=== PATIENT | male | born 1985 | race Caucasian/White ===

== ENCOUNTER 2023-01-21 18:05 | Emergency (ER) | payer OTHER, SELFPAY ==
--- NOTE | ~2023-01-21 | XR_ITS ---
EXAMINATION: XR CHEST CLINICAL INFORMATION: Shortness of breath. COMPARISON: None available. TECHNIQUE: Frontal view of the chest was obtained. FINDINGS: Normal appearance of the cardiomediastinal silhouette. Chronic appearing deformities of multiple right-sided ribs with associated subpleural thickening. No pleural effusion or pneumothorax. Mild diffuse interstitial thickening. Visualized upper abdomen is within normal limits. XR/XR chest 1V IMPRESSION: 1. Mild diffuse interstitial thickening which is nonspecific and could be associated with asthma, bronchitis, reactive airways disease or atypical infections. 2. Chronic appearing deformities of multiple right-sided ribs with associated subpleural thickening. Correlate with physical examination.
[2023-01-21 18:16] VITALS: BP 143/93; BP 182/78; PULSE 120; PULSE 95; RESP 16; TEMP 36.8; O2SAT 93; O2SAT 94; BMI 34.4
--- NOTE | 2023-01-21 19:17 | ED.OVERDOSE ---
HPI - Overdose General Chief Complaint: Overdose Stated Complaint: overdose narcan given Time Seen by Provider: 01/21/23 19:14 Source: patient Mode of arrival: EMS Limitations: no limitations History of Present Illness HPI Narrative: Patient history of cocaine abuse came from work and snorted 1 bag of cocaine but had fentanyl in that found unresponsive a bystander HPD give him 8 mg intranasal Narcan and BVM now it oriented x3 desaturating to 84% at room air feels lung tight patient did smoked a lot prior to using cocaine. Patient denies any history of lung issues in the past no sleep apnea Related Data Previous Rx's Medication Instructions Recorded albuterol sulfate 90 mcg/actuation 2 puff inhalation Q4-6H PRN 01/21/23 aerosol inhaler (ProAir HFA) shortness of breath or wheezing #8.5 grams prednisone 20 mg tablet 40 mg PO DAILY #10 tabs 01/21/23 Allergies Allergy/AdvReac Type Severity Reaction Status Date / Time No Known Allergies Allergy Verified 01/21/23 19:26 Review of Systems Review of Systems: Yes all other systems are reviewed and are negative [facility] Social History Social History Advance Directives: No Advance Directives Information Provided: No Physical Exam Vital Signs: Vital Signs: Last Vital Signs Temp 98.3 F 01/21/23 18:16 Pulse 106 H 01/21/23 22:30 Resp 22 H 01/21/23 22:30 BP 143/93 H 01/21/23 18:16 Pulse Ox 94 01/21/23 20:05 O2 Del Method Nasal Cannula 01/21/23 20:05 O2 Flow Rate 2 01/21/23 20:05 Oxygen Flow Rate 4 01/21/23 18:16 BMI result Body Mass Index 34.4 Appearance: Alert. Oriented X3. No acute distress. Eyes: PERRLA, ENT: Pharynx normal. Oral Mucosa moist Neck: Normal inspection. Neck supple. CVS: Normal heart rate and rhythm. Pulses normal. Respiratory: By respiratory distress. Equal air entry bilateral, decreased air entry bilateral with frequent cough Abdomen: Soft and nontender. Bowel sounds are present, no mass palpable, no CVA tenderness Skin: Skin warm and dry. Normal skin color. Normal skin turgor. Extremities: No lower extremity edema. No calf tenderness Neuro: Oriented X 3. No motor deficit. Medications Administered Discontinued Medications Generic Name Dose Route Start Last Admin Trade Name Ricarda PRN Reason Stop Dose Admin Albuterol Sulfate 5 mg 01/21/23 19:26 01/21/23 19:39 Albuterol Sulfate (0.083%) 2.5 Mg/3 Ml Vial.Neb INHALE 01/21/23 19:27 5 mg ONCE ONE Administration Albuterol Sulfate 4 puff 01/21/23 21:27 01/21/23 21:34 Albuterol Sulfate 90 Mcg 8 Gm Inhaler INHALE 01/21/23 21:28 4 puff ONCE ONE Administration Albuterol Sulfate 10 mg 01/21/23 22:19 01/21/23 22:29 Albuterol Sulfate (0.083%) 2.5 Mg/3 Ml Vial.Neb INHALE 01/21/23 22:20 10 mg ONCE ONE Administration Albuterol/Ipratropium 3 ml 01/21/23 19:26 01/21/23 19:39 Albuterol/Iprat 2.5/0.5mg 3 Ml Ampul.Neb INHALE 01/21/23 19:27 3 ml ONCE ONE Administration Magnesium Sulfate 2 gm in 50 mls @ 150 mls/hr 01/21/23 22:19 01/21/23 23:00 Magnesium Sulfate/H2o IV 01/21/23 22:38 Infused ONCE ONE Infusion Methylprednisolone Sodium Succinate 125 mg 01/21/23 19:27 01/21/23 21:03 Methylprednisolone Sod Succ 125 Mg/2 Ml Vial IVPUSH 01/21/23 19:28 125 mg ONCE ONE Administration Medical Decision Making Medical Decision Making [facility] Narrative: Patient with substance abuse with bronchitis improved after nebulizing treatment no chest pain likely from a hypoxic injury. Will repeat troponin Differential Diagnosis Differential Diagnoses: The differential diagnosis associated with the presentation includes Allergic bronchitis/pneumothorax/pneumonia/CHF Lab Data [facility] Lab Attestation statement: I reviewed the patient's lab results. 01/21/23 20:18 01/21/23 20:18 Labs: Lab Results 01/21/23 01/21/23 01/21/23 Range/Units 20:18 20:18 20:18 WBC 9.7 (4.8-10.8) X10*3/uL RBC 4.68 (4.60-5.80) X10*6/uL Hgb 14.8 (14.0-18.0) g/dl Hct 41.5 L (42.0-52.0) % MCV 88.7 (80.0-98.0) fL MCH 31.6 (27.0-33.0) pg MCHC 35.7 (31.0-36.0) g/dl RDW 11.8 (11.0-16.0) % Plt Count 255 (160-400) X10*3/uL MPV 9.6 (9.4-12.4) fL Immature Gran % (Auto) 0.3 (0.0-0.4) % Neut % (Auto) 84.4 H (45-73) % Lymph % (Auto) 9.2 L (20-40) % Doddridge % (Auto) 5.0 (2-11) % Eos % (Auto) 0.8 (0-4) % Baso % (Auto) 0.3 (0-2) % Lymph # (Auto) 0.9 L (1.2-4.9) X10*3/uL Dod[place]idge # (Auto) 0.5 (0.1-1.2) X10*3/uL Eos # (Auto) 0.1 (0.0-0.4) X10*3/uL Baso # (Auto) 0.0 (0.0-0.2) X10*3/uL Abs Immat Gran (auto) 0.03 (0.00-0.03) X10*3/uL Absolute Neuts (auto) 8.2 (2.0-8.3) x10*3/uL Absolute Nucleated RBC 0.000 (0.0-0.012) X10*3/uL Nucleated RBC % (auto) 0.0 (0.0-0.2) /100WBC PT (11.1-13.3) SEC INR (0.9-1.1) Sodium 141 (135-145) mmol/L Potassium 3.4 (3.3-5.1) mmol/L Chloride 102 (96-108) mmol/L Carbon Dioxide 27 (22-29) mmol/L Anion Gap 15 (12-20) BUN 15 (9-16) mg/dL Creatinine 1.17 (0.5-1.4) mg/dL Estim Creat Clear Calc 114.2 Estimated GFR > 60 Random Glucose 133 H (60-115) mg/dL Calcium 9.5 (8.4-10.2) mg/dL Total Bilirubin 0.6 (0.0-1.0) mg/dL AST 20 (5-37) U/L ALT 32 (0-40) U/L Alkaline Phosphatase 51 (39-117) U/L Troponin I High Sens 41.0 H (<3.5-35.0) ng/L B-Natriuretic Peptide (<100) pg/mL Total Protein 7.4 (6.5-8.0) g/dL Albumin 4.5 (3.5-5.0) g/dL 01/21/23 01/21/23 01/21/23 Range/Units 20:18 20:18 22:24 WBC (4.8-10.8) X10*3/uL RBC (4.60-5.80) X10*6/uL Hgb (14.0-18.0) g/dl Hct (42.0-52.0) % MCV (80.0-98.0) fL MCH (27.0-33.0) pg MCHC (31.0-36.0) g/dl RDW (11.0-16.0) % Plt Count (160-400) X10*3/uL MPV (9.4-12.4) fL Immature Gran % (Auto) (0.0-0.4) % Neut % (Auto) (45-73) % Lymph % (Auto) (20-40) % Doddridge % (Auto) (2-11) % Eos % (Auto) (0-4) % Baso % (Auto) (0-2) % Lymph # (Auto) (1.2-4.9) X10*3/uL [place]idge # (Auto) (0.1-1.2) X10*3/uL Eos # (Auto) (0.0-0.4) X10*3/uL Baso # (Auto) (0.0-0.2) X10*3/uL Abs Immat Gran (auto) (0.00-0.03) X10*3/uL Absolute Neuts (auto) (2.0-8.3) x10*3/uL Absolute Nucleated RBC (0.0-0.012) X10*3/uL Nucleated RBC % (auto) (0.0-0.2) /100WBC PT 11.1 (11.1-13.3) SEC INR 0.9 (0.9-1.1) Sodium (135-145) mmol/L Potassium (3.3-5.1) mmol/L Chloride (96-108) mmol/L Carbon Dioxide (22-29) mmol/L Anion Gap (12-20) BUN (9-16) mg/dL Creatinine (0.5-1.4) mg/dL Estim Creat Clear Calc Estimated GFR Random Glucose (60-115) mg/dL Calcium (8.4-10.2) mg/dL Total Bilirubin (0.0-1.0) mg/dL AST (5-37) U/L ALT (0-40) U/L Alkaline Phosphatase (39-117) U/L Troponin I High Sens 62.3 H D (<3.5-35.0) ng/L B-Natriuretic Peptide < 10 (<100) pg/mL Total Protein (6.5-8.0) g/dL Albumin (3.5-5.0) g/dL Discharge Plan Discharge Clinical Impression: Poisoning by opiate or related narcotic, Acute bronchitis Patient Disposition: Home, Self-Care Instructions: Acute Bronchitis (ED), Opioid Use Disorder (ED) Additional Instructions: Stop using cocaine/opiates Inhaler as advised and prednisone for bronchitis Follow with PCP You have elevated troponin likely from damage to heart Need to follow-up with chicken picker/PCP stop using cocaine Prescriptions: New albuterol sulfate [ProAir HFA] 90 mcg/actuation HFA aerosol inhaler 2 puff inhalation Q4-6H PRN (Reason: shortness of breath or wheezing) Qty: 8.5 0RF prednisone 20 mg tablet 40 mg PO DAILY Qty: 10 0RF Stand Alone Forms: Against Medical Advice Interventions: ED Discharge Assessment Last Done: 01/21/23 23:20 Discharge Date/Time: 01/21/23 23:21
--- NOTE | 2023-01-21 19:30 | ECG_ITS ---
Test Reason : DYSPNEA Blood Pressure : / mmHG Vent. Rate : 105 BPM Atrial Rate : 105 BPM P-R Int : 142 ms QRS Dur : 088 ms QT Int : 370 ms P-R-T Axes : 080 062 047 degrees QTc Int : 489 ms Sinus tachycardia Prolonged QT Abnormal ECG No previous ECGs available Referred By: Joshua Huerta Electronically Signed By:MINDI CHOW
[2023-01-21] MEDS: Albuterol/Iprat 2.5/0.5MG 3 ML AMPUL.NEB INHALE (19:39)
[2023-01-21] MEDS: Albuterol Sulfate (0.083%) 2.5 MG/3 ML VIAL.NEB 5 MG INHALE (19:39)
[2023-01-21 19:40] VITALS: PULSE 95; RESP 16; O2SAT 94
[2023-01-21 20:00] VITALS: O2SAT 88
[2023-01-21 20:05] VITALS: O2SAT 94
[2023-01-21 20:25] LABS: MANUAL DIFF FLAG NO
[2023-01-21 20:36] LABS: Basophils Percent Auto 0.3 % (0-2); Eosinophils Absolute Auto 0.1 X10*3/uL (0.0-0.4); Eosinophils Percent Auto 0.8 % (0-4); Hematocrit 41.5 % (42.0-52.0); Hemoglobin 14.8 g/dl (14.0-18.0); Imm Gran Abs Auto 0.03 X10*3/uL (0.00-0.03); Imm Gran Pct Auto 0.3 % (0.0-0.4); Lymphocytes Absolute Auto 0.9 X10*3/uL (1.2-4.9); Lymphocytes Percent Auto 9.2 % (20-40); Mean Corpuscular HGB Conc 35.7 g/dl (31.0-36.0); Mean Corpuscular Hemoglobin 31.6 pg (27.0-33.0); Mean Corpuscular Volume 88.7 fL (80.0-98.0); Mean Platelet Volume 9.6 fL (9.4-12.4); Monocytes Absolute Auto 0.5 X10*3/uL (0.1-1.2); Neutrophils Absolute Auto 8.2 x10*3/uL (2.0-8.3); Neutrophils Percent Auto 84.4 % (45-73); Platelet Count 255 X10*3/uL (160-400); Red Blood Count 4.68 X10*6/uL (4.60-5.80); Red Cell Distribution Width 11.8 % (11.0-16.0); White Blood Count 9.7 X10*3/uL (4.8-10.8)
[2023-01-21 20:43] LABS: Alanine Aminotransferase 32 U/L (0-40); Albumin Level 4.5 g/dL (3.5-5.0); Alkaline Phosphatase 51 U/L (39-117); Anion Gap 15 (12-20); Aspartate Amino Transferase 20 U/L (5-37); Bilirubin Total 0.6 mg/dL (0.0-1.0); Blood Urea Nitrogen 15 mg/dL (9-16); Calcium 9.5 mg/dL (8.4-10.2); Carbon Dioxide 27 mmol/L (22-29); Chloride 102 mmol/L (96-108); Creatinine Clr Calc Pharmacy 114.2; Estimated Glomerular Filt Rate > 60; Glucose Random 133 mg/dL (60-115); Potassium 3.4 mmol/L (3.3-5.1); Sodium 141 mmol/L (135-145); Total Protein 7.4 g/dL (6.5-8.0)
[2023-01-21 20:46] LABS: INTERNATIONAL NORM RATIO 0.9 (0.9-1.1); Prothrombin Time 11.1 SEC (11.1-13.3)
[2023-01-21 20:48] LABS: B Type Natriuretic Peptide < 10 pg/mL (<100)
[2023-01-21] MEDS: methylPREDNISolone Sod Succ 125 MG/2 ML VIAL IVPUSH (21:03)
[2023-01-21] MEDS: Albuterol Sulfate 90 MCG 8 GM INHALER 4 PUFF INHALE (21:34)
[2023-01-21 21:36] VITALS: PULSE 89; RESP 24; O2SAT 92
[2023-01-21] MEDS: Albuterol Sulfate (0.083%) 2.5 MG/3 ML VIAL.NEB 10 MG INHALE (22:29)
[2023-01-21 22:30] VITALS: PULSE 106; RESP 22; O2SAT 92
[2023-01-21] MEDS: Magnesium Sulfate/H2O 2 GM/50 ML PIGGYBACK IV (22:35)
[2023-01-21 22:50] LABS: Troponin-I High Sensitivity 62.3 ng/L (<3.5-35.0)
--- NOTE | 2023-01-21 23:08 | MHC.EDTECH ---
TOOK OVER NOVELTY MAKER AT 2300
--- NOTE | 2023-01-21 23:16 | PC.NURSE ---
Late entry: Pt appears to be sleeping, awakens upon verbal stimuli, A&Ox4, SpO2 trending low on RA, Pt placed on 2L via NC, respiratory therapist at bedside giving tx. IV line placed, meds given as documented. Pt requesting to leave, states my ride is on the way . AMA form signed.
== END 2023-01-21 23:21 | disposition home or self-care (01) ==
PROVIDERS: Emergency Provider Internal Medicine
DX: J20.9 Acute bronchitis, unspecified (principal); T40.5X1A Poisoning by cocaine, accidental (unintentional), initial encounter; F19.10 Other psychoactive substance abuse, uncomplicated; Y92.9 Unspecified place or not applicable
CPT/HCPCS: 36415; 71045; 80053; 83880; 84484; 85025; 85610; 93005; 94640; 96365; 96375; 99284; 99285; J2930; J3475

== ENCOUNTER → 2023-01-21 19:30 | Outpatient (BNV) | payer OTHER, SELFPAY | PROVIDERS: Emergency Provider Internal Medicine; Visit Provider Internal Medicine | DX: I45.81 Long QT syndrome (principal) | CPT/HCPCS: 93010 ==

== ENCOUNTER 2024-02-28 09:30 | Inpatient (IN) | payer MEDICAID, SELFPAY ==
--- NOTE | ~2024-02-28 | CT_ITS ---
EXAMINATION: CT FOREARM WITH CONTRAST, RIGHT CLINICAL INFORMATION: Abscess. Rule out joint involvement. COMPARISON: None available. TECHNIQUE: Axial imaging. Sagittal and coronal reconstructions. 85 mL Omnipaque 350 . Imaging from the distal humerus and the forearm. This CT examination was performed using dose optimization techniques as appropriate, variously including the following: *Automated exposure control *Adjustment of mA and/or kV according to patient size (this includes techniques or standardized protocols for targeted exams where dose is matched to indication/reason for exam; i.e. extremities or head) *Use of iterative reconstruction technique DLP: 217 mGy-cm FINDINGS: There is extensive soft tissue swelling and subcutaneous edema/cellulitis in the visualized humerus and forearm. In the volar aspect of the elbow,, is skin thickening, and a peripherally enhancing organized fluid collection in the soft tissue/subcutaneous tissues. This measures approximately 6.4 x 2 x 2.7 cm (transverse, AP, length). HU measurements 27. Finding is suspicious for an abscess. As noted above, is circumferential soft tissue swelling and subcutaneous edema. There is also some edema/fluid extending along the biceps tendon into the deeper soft tissues. No additional organized fluid collections are identified. No evidence of acute fracture. No erosive or destructive changes are seen. No large elbow joint effusion is evident by CT. CT/CT forearm RT w IV con IMPRESSION: In the volar aspect aspect of the elbow, is a peripherally enhancing organized fluid collection in the soft tissue/subcutaneous tissues. This measures 6.4 x 2 x 2.7 cm. Findings are suspicious for abscess. There is extensive soft tissue swelling and subcutaneous edema/cellulitis in the visualized/imaged portions of the humerus and forearm. There is some edema/fluid also extending along the biceps tendon.. No additional organized fluid collections are identified. No significant ankle joint effusion is seen. Electronically signed by: Immanuel Dodd MD 02/28/2024 06:37 PM EDT
[2024-02-28 10:13] VITALS: BP 136/74; PULSE 82; RESP 20; TEMP 37.4; O2SAT 99; BMI 30.6
[2024-02-28 10:29] LABS: MANUAL DIFF FLAG NO
[2024-02-28 10:30] LABS: Basophils Percent Auto 0.2 % (0-2); Eosinophils Percent Auto 0.3 % (0-4); Hematocrit 39.5 % (42.0-52.0); Hemoglobin 14.4 g/dl (14.0-18.0); Imm Gran Abs Auto 0.05 X10*3/uL (0.00-0.03); Imm Gran Pct Auto 0.4 % (0.0-0.4); Lymphocytes Absolute Auto 1.4 X10*3/uL (1.2-4.9); Lymphocytes Percent Auto 10.1 % (20-40); Mean Corpuscular HGB Conc 36.5 g/dl (31.0-36.0); Mean Corpuscular Hemoglobin 32.1 pg (27.0-33.0); Mean Platelet Volume 9.1 fL (9.4-12.4); Monocytes Absolute Auto 1.5 X10*3/uL (0.1-1.2); Monocytes Percent Auto 10.6 % (2-11); Neutrophils Absolute Auto 11.2 x10*3/uL (2.0-8.3); Neutrophils Percent Auto 78.4 % (45-73); Platelet Count 221 X10*3/uL (160-400); Red Blood Count 4.49 X10*6/uL (4.60-5.80); Red Cell Distribution Width 11.8 % (11.0-16.0); White Blood Count 14.2 X10*3/uL (4.8-10.8)
[2024-02-28 10:50] LABS: Alanine Aminotransferase 26 U/L (0-40); Albumin Level 4.3 g/dL (3.5-5.0); Alkaline Phosphatase 57 U/L (39-117); Anion Gap 10 (12-20); Aspartate Amino Transferase 14 U/L (5-37); Bilirubin Total 0.9 mg/dL (0.0-1.0); Blood Urea Nitrogen 9 mg/dL (9-16); Calcium 9.6 mg/dL (8.4-10.2); Carbon Dioxide 29 mmol/L (22-29); Chloride 101 mmol/L (96-108); Creatinine Clr Calc Pharmacy 103.4; Estimated Glomerular Filt Rate > 60; Glucose Random 77 mg/dL (60-115); Potassium 4.4 mmol/L (3.3-5.1); Sodium 136 mmol/L (135-145); Total Protein 7.4 g/dL (6.5-8.0)
[2024-02-28 13:05] VITALS: BP 116/77; PULSE 75; RESP 18; TEMP 37.7; O2SAT 100
--- NOTE | 2024-02-28 13:09 | ED.GENADULT ---
HPI - General Adult General Chief complaint: General Medical Stated complaint: Swollen R Arm No Injury Time Seen by Provider: 02/28/24 13:19 Source: patient Mode of arrival: ambulatory Limitations: no limitations History of Present Illness ED Provider: MAURA PÑEA PA-C HPI narrative: 38 year old male with no significant pmhx presents to the ED today for evaluation of right extremity pain, swelling, and redness x3 days following suspected insect bite. Endorses difficulty flexing the right elbow. Admits to subjective fevers at home along with chills. Denies injury/ trauma. Denies hx of or current IVDU. Unsure of tetanus status. Related Data Previous Rx's ?Medication ?Instructions ?Recorded albuterol sulfate 90 mcg/actuation 2 puff inhalation Q4-6H PRN 01/21/23 aerosol inhaler (ProAir HFA) shortness of breath or wheezing #8.5 grams prednisone 20 mg tablet 40 mg (2 x 20 mg) PO DAILY #10 tabs 01/21/23 Allergies Allergy/AdvReac Type Severity Reaction Status Date / Time No Known Allergies Allergy Verified 02/28/24 14:16 Review of Systems Review of Systems: Constitutional: No fever, chills, fatigue, night sweats, weight changes ENT/Mouth: No ear pain, hearing loss, nasal congestion, sinus pain, rhinorrhea, sore throat Eyes: No eye pain, swelling, redness, vision changes, discharge Cardio: No chest pain, palpitations, AMARO, orthopnea, peripheral edema Pulm: No SOB, cough, sputum, wheezing, dyspnea, hemoptysis GI: No nausea, vomiting, hematemesis, abdominal pain, diarrhea, constipation, hematochezia, melena : No irregular bleeding, dysuria, frequency, urgency, hesitancy, hematuria, flank pain, urinary flow changes, urinary incontinence or retention MSK: No back pain, neck pain, joint pain, myalgias, +pain, redness, swelling to right forearm Skin: No lesions, rashes Neuro: No weakness, numbness, paresthesias, LOC, dizziness, headache Psych: No anxiety/panic, depression, SI/HI, AH/VH All other systems reviewed and are negative. [facility] Past Medical History Attestation statement: The following information was validated with the patient. Source: old records reviewed and nursing notes reviewed Social History Social History Advance Directives: No Advance Directives Information Provided: No Do you have a plan to hurt others: No Plan Physical Exam ED Vital Signs: Vital Signs - 24 hr 02/28/24 10:13 02/28/24 13:05 02/28/24 16:33 Temperature 99.4 F 99.8 F 100.3 F Pulse Rate 82 75 76 Respiratory Rate 20 18 16 Blood Pressure 136/74 116/77 132/72 Pulse Oximetry 99 100 99 Oxygen Delivery Method Room Air Room Air Room Air BMI result Body Mass Index 30.6 Vitals stable, afebrile, not tachycardic. General: Well appearing, in no acute distress. Skin: see below Head: Normocephalic, atraumatic. EENT: Hearing is intact b/l. Conjunctiva clear. PERRLA. Moist mucous membranes.? Cardiac: Chest wall symmetric. RRR. No MRG. No JVD. Lungs: Normal respiratory effort without accessory muscle use. CTA bilaterally. No rales, rhonchi, or wheezes.? Ext: RUE w/ notable erythema extending from right bicep down to wrist with area of central fluctuance noted just distal to right antecubital fossa. pointing. no streaking. warm and ttp. pain w/ flexion of right elbow. 2+ radial and ulnar pulse intact. Neuro: AOx3. Normal speech.Strength 5/5 intact throughout. Sensation intact to light touch. NV intact distally. Ambulating with steady gait. Psych: Appropriate mood and affect. Responds appropriately to questions. Course Course Course Narrative: RME performed by Liza Peraza PA-C. Patient is a 38 year old assigned male at presenting to the emergency department with a right arm infection. Patient states 3 days ago he got bit by a bug and attempted to pop it and now it is significanlty bigger. Large abscess present to the right volar forearm. Patient denies any IV drug use ever. Detailed physical exam and review of systems are deferred to the laundry assistant. Labs ordered. Patient placed back in the waiting room pending room availability and results. Reevaluation(s) Reevaluation #1: 1351 [place] [address]. No anemia. H&H stable. Chemistry without acute electrolyte abnormality requiring intervention. No JON. Normal liver function. Inflammatory markers pending. Lactic acid pending. > at this time there is no concern for sepsis. I do have concern for abscess vs deep soft tissue infection. Blood cultures added on. Will obtain CT scan right forearm/ elbow w/ IV contrast to rule out joint involvement and assess depth of infection. IV ceftriaxone and vancomycin ordered for broad-spectrum coverage at this time. 1L IV ordered. Morphine ordered for pain control. tdap booster given. 1640 -- temp now 100.3F > motrin ordered. patient requesting more pain control > second dose of IV morphine ordered. will continue to monitor. > CT right forearm read pending 1810 -- I was called to bedside as patient reported spontaneous rupture of abscess while he was sleeping. upon entering room, purulent discharge noted from small hole in center. I was able to express some purulent fluid out however I did not completely I&D the area. Culture sent to lab. > I spoke with ortho MIGUE Willingham regarding case. After reviewing and speaking with Dr. eDleon, they recommend admission to medicine for continued treatment with IV antibiotics and pain management with plan for wash out in OR in the morning. Patient to be NPO at midnight. Will speak with the hospitalist regarding admission. 1839 -- CT right forearm showing peripherally enhancing organized fluid collection in the soft tissue/subcutaneous tissues measuring 6.4 x 2 x 2.7 cm suspicious for abscess. There is extensive soft tissue swelling and subcutaneous edema/cellulitis in the visualized images of the humerus and forearm. There is some edema/fluid extending along the biceps tendon. No additional organized fluid collections identified. No significant elbow joint effusion evident. > Hospitalist MIGUE Seay has accepted patient admission for right forearm abscess requiring IV antibiotic therapy. Medications Administered Discontinued Medications Generic Name Dose Route Start Last Admin Trade Name Freq PRN Reason Stop Dose Admin Diphtheria/Tetanus/Acell Pertussis 0.5 ml 02/28/24 14:23 02/28/24 15:43 Diphth,Pertus(Acell),Tet Adult 0.5 Ml Syringe IM 02/28/24 14:24 0.5 ml .ONCE ONE Administration Sodium Chloride 1,000 mls @ 999 mls/hr 02/28/24 13:45 02/28/24 15:35 Ns IV 02/28/24 14:45 Infused .Q1H1M YURI Infusion Ceftriaxone Sodium 1 gm/ 50 mls @ 100 mls/hr 02/28/24 13:40 02/28/24 14:41 Sodium Chloride IV 02/28/24 14:09 Infused ONCE ONE Infusion Vancomycin HCl 2,000 mg in 500 mls @ 250 mls/hr 02/28/24 13:40 02/28/24 18:05 Vancomycin/Ns IV 02/28/24 15:39 Infused ONCE ONE Infusion Ibuprofen 800 mg 02/28/24 16:40 02/28/24 16:53 Ibuprofen 800 Mg Tablet PO 02/28/24 16:41 800 mg ONCE ONE Administration Iohexol 85 ml 02/28/24 15:08 02/28/24 15:08 Iohexol 350 Mg/Ml 100 Ml Infus..Btl IV 02/28/24 15:09 85 ml ONCE ONE Administration Morphine Sulfate 4 mg 02/28/24 13:39 02/28/24 14:13 Morphine Sulfate 4 Mg/Ml Cartridge IVPUSH 02/28/24 13:40 4 mg ONCE ONE Administration Protocol Morphine Sulfate 4 mg 02/28/24 16:22 02/28/24 16:52 Morphine Sulfate 4 Mg/Ml Cartridge IVPUSH 02/28/24 16:23 4 mg ONCE ONE Administration Protocol Medical Decision Making Medical Decision Making MDM Narrative: 38 year old male with no significant pmhx presents to the ED today for evaluation of right extremity pain, swelling, and redness x3 days following suspected insect bite. Vital signs stable, afebrile. He is nontoxic-appearing and in no acute distress. On exam of right upper extremity, there is notable erythema extending from right bicep down to wrist with area of central fluctuance noted just distal to right antecubital fossa. pointing. no streaking. warm and ttp. pain w/ flexion of right elbow. 2+ radial and ulnar pulse intact. Differential diagnosis includes insect bite, cellulitis, abscess, deep soft tissue infection. Unlikely sepsis, septic joint. Plan for labs, inflammatory markers, lactic, blood cultures, imaging, pain control, IVF and re-evaluation. Differential Diagnosis Differential Diagnoses: The differential diagnosis associated with the presentation includes as above. Admission/Observation Consideration of admission/observation: Escalation of care including admission/observation considered Patient to be admitted to medicine for IV antibiotics and OR wash out in the morning. Consult Healthcare Provider Management of the patient was discussed with: Hospitalist (Rosemary CAMARENA ) and Solar Pv Installer (Maulik CAMARENA) Lab Data MDM Lab Attestation statement: I reviewed the patient's lab results. as above. 02/28/24 10:25 02/28/24 10:25 Labs: Lab Results 02/28/24 02/28/24 02/28/24 Range/Units 10:25 13:37 13:40 WBC 14.2 H (4.8-10.8) X10*3/uL RBC 4.49 L (4.60-5.80) X10*6/uL Hgb 14.4 (14.0-18.0) g/dl Hct 39.5 L (42.0-52.0) % MCV 88.0 (80.0-98.0) fL MCH 32.1 (27.0-33.0) pg MCHC 36.5 H (31.0-36.0) g/dl RDW 11.8 (11.0-16.0) % Plt Count 221 (160-400) X10*3/uL MPV 9.1 L (9.4-12.4) fL Immature Gran % (Auto) 0.4 (0.0-0.4) % Neut % (Auto) 78.4 H (45-73) % Lymph % (Auto) 10.1 L (20-40) % Scott % (Auto) 10.6 (2-11) % Eos % (Auto) 0.3 (0-4) % Baso % (Auto) 0.2 (0-2) % Lymph # (Auto) 1.4 (1.2-4.9) X10*3/uL Scott # (Auto) 1.5 H (0.1-1.2) X10*3/uL Eos # (Auto) 0.0 (0.0-0.4) X10*3/uL Baso # (Auto) 0.0 (0.0-0.2) X10*3/uL Abs Immat Gran (auto) 0.05 H (0.00-0.03) X10*3/uL Absolute Neuts (auto) 11.2 H (2.0-8.3) x10*3/uL Absolute Nucleated RBC 0.000 (0.0-0.012) X10*3/uL Nucleated RBC % (auto) 0.0 (0.0-0.2) /100WBC ESR 36 H (0-15) MM/HR Sodium 136 (135-145) mmol/L Potassium 4.4 (3.3-5.1) mmol/L Chloride 101 (96-108) mmol/L Carbon Dioxide 29 (22-29) mmol/L Anion Gap 10 L (12-20) BUN 9 (9-16) mg/dL Creatinine 1.21 (0.5-1.4) mg/dL Estim Creat Clear Calc 103.4 Estimated GFR > 60 Random Glucose 77 (60-115) mg/dL Lactic Acid 1.5 (0.5-2.0) mmol/L Calcium 9.6 (8.4-10.2) mg/dL Total Bilirubin 0.9 (0.0-1.0) mg/dL AST 14 (5-37) U/L ALT 26 (0-40) U/L Alkaline Phosphatase 57 (39-117) U/L C-Reactive Protein 13.21 H (< or = 0.50) mg/dL Total Protein 7.4 (6.5-8.0) g/dL Albumin 4.3 (3.5-5.0) g/dL Independent Interpretation I performed an independent interpretation of an: CT Scan Interpretation: CT right forearm/ elbow showing walled off fluid collection along right volar forearm, agree with radiologist's interpretation. Radiology Impression Discussion of test interpretation with radiology: I have reviewed the radiologist's reading. Radiologist Impression: EXAMINATION: CT FOREARM WITH CONTRAST, RIGHT CLINICAL INFORMATION: Abscess. Rule out joint involvement. COMPARISON: None available. TECHNIQUE: Axial imaging. Sagittal and coronal reconstructions. 85 mL Omnipaque 350 . Imaging from the distal humerus and the forearm. This CT examination was performed using dose optimization techniques as appropriate, variously including the following: *Automated exposure control *Adjustment of mA and/or kV according to patient size (this includes techniques or standardized protocols for targeted exams where dose is matched to indication/reason for exam; i.e. extremities or head) *Use of iterative reconstruction technique DLP: 217 mGy-cm FINDINGS: There is extensive soft tissue swelling and subcutaneous edema/cellulitis in the visualized humerus and forearm. In the volar aspect of the elbow,, is skin thickening, and a peripherally enhancing organized fluid collection in the soft tissue/subcutaneous tissues. This measures approximately 6.4 x 2 x 2.7 cm (transverse, AP, length). HU measurements 27. Finding is suspicious for an abscess. As noted above, is circumferential soft tissue swelling and subcutaneous edema. There is also some edema/fluid extending along the biceps tendon into the deeper soft tissues. No additional organized fluid collections are identified. No evidence of acute fracture. No erosive or destructive changes are seen. No large elbow joint effusion is evident by CT. CT/CT forearm RT w IV con IMPRESSION: In the volar aspect aspect of the elbow, is a peripherally enhancing organized fluid collection in the soft tissue/subcutaneous tissues. This measures 6.4 x 2 x 2.7 cm. Findings are suspicious for abscess. There is extensive soft tissue swelling and subcutaneous edema/cellulitis in the visualized/imaged portions of the humerus and forearm. There is some edema/fluid also extending along the biceps tendon.. No additional organized fluid collections are identified. No significant ankle joint effusion is seen. Electronically signed by: Immanuel Dodd MD 02/28/2024 06:37 PM EDT Prescription Management I considered prescription management with: Pain Medication and Antibiotic Social Determinants Patient?s care significantly limited by Social Determinants of Health including: Other Social Determinant of Health Critical Care Time Critical Care Time Critical Care Time: Yes Total Critical Care Time: 55 Attestation: Critical care time in the amount of 55 minutes has been provided to the patient in terms of direct patient care, frequent reevaluation on IV morphine, consultation with ortho and hospitalist, review and interpretation of medical data and results, and management of potentially life-threatening conditions. This is all outside of any medical procedures. Discharge Plan Discharge Clinical Impression: Abscess of right forearm, Cellulitis of right forearm Patient Disposition: Admitted As Inpatient Print Language: Danish
[2024-02-28] MEDS: cefTRIAXone sodium 1 GM in 0.9 % Sodium Chloride 50 ML IV (14:11)
[2024-02-28 14:12] LABS: C Reactive Protein 13.21 mg/dL (< or = 0.50)
[2024-02-28] MEDS: Morphine Sulfate 4 MG/ML CARTRIDGE IVPUSH ×2 (14:13→16:52)
[2024-02-28 14:24] LABS: Lactic Acid 1.5 mmol/L (0.5-2.0)
[2024-02-28] MEDS: 0.9 % Sodium Chloride 1,000 ML 999 ML IV (14:29)
[2024-02-28 14:40] LABS: Erythrocyte Sedimentation Rate 36 MM/HR (0-15)
[2024-02-28] MEDS: iohexoL 350 MG/ML 100 ML INFUS..BTL 85 ML IV (15:08)
[2024-02-28] MEDS: Diphth,Pertus(ACell),Tet Adult 0.5 ML SYRINGE IM (15:43)
[2024-02-28] MEDS: vancomycin/NS 2,000 MG/500 ML PLAST..BAG 250 MG IV (15:44)
--- NOTE | 2024-02-28 16:09 | PC.NURSE ---
This Nurse saw patient at 1350 explained to pt he would see provider. This Nurse assessed Right Arm pt states he's not sure if something bit him. Right Arm Swollen and abscess near the Right AC area. 20 G IV inserted in Left AC positive blood return.PT changed into hospital gown and needed assistance due to the arm hurting.
[2024-02-28 16:33] VITALS: BP 132/72; PULSE 76; RESP 16; TEMP 37.9; O2SAT 99
[2024-02-28] MEDS: Ibuprofen 800 MG TABLET PO (16:53)
--- NOTE | 2024-02-28 19:12 | PM.IMHP ---
History of Present Illness Date of Service: 02/28/24 Chief Complaint: right arm pain and swelling 38M no significant past medical history. Presented with right arm pain and swelling. Patient states about a week prior to presentation he noted a pimple or bug bite on his right forearm. He tried to drain it. Later on he started to notice swelling pain and erythema. Over the last 2 days he has had subjective fevers. In ED, CT showed abscess 6.4 cm by 2 cm x 2.7 cm. Low-grade temp of 100.3 degrees, leukocytosis of 14, not meeting sirs criteria. Review of Systems Review of Systems: Yes all other systems are reviewed and are negative PMFSH Social History Advance Directives: No Advance Directives Information Provided: No Do you have a plan to hurt others: No Plan Meds Allergies Allergy/AdvReac Type Severity Reaction Status Date / Time No Known Allergies Allergy Verified 02/28/24 14:16 Active Medications: Current Medications Vancomycin HCl 1,000 mg/ (Sodium Chloride) 270 mls @ 270 mls/hr IV Q12H [facility] Pharmacy Consult (Consult Rx Vancomycin Dosing) 1 each MISCELLANE DAILY PRN PRN Reason: Consult order Physical Exam Vital Signs and Narrative: Vital Signs: Last Vital Signs Temp 100.3 F 02/28/24 16:33 Pulse 76 02/28/24 16:33 Resp 16 02/28/24 16:33 BP 132/72 02/28/24 16:33 Pulse Ox 99 02/28/24 16:33 O2 Del Method Room Air 02/28/24 16:33 BMI result Body Mass Index 30.6 Results Labs 02/28/24 10:25 02/28/24 10:25 Labs: Laboratory Results - last 24 hr 02/28/24 02/28/24 02/28/24 10:25 13:37 13:40 MCV 88.0 MCH 32.1 MCHC 36.5 H RDW 11.8 Plt Count 221 MPV 9.1 L Immature Gran % (Auto) 0.4 Neut % (Auto) 78.4 H Lymph % (Auto) 10.1 L [place] % (Auto) 10.6 Eos % (Auto) 0.3 Baso % (Auto) 0.2 Lymph # (Auto) 1.4 [place] # (Auto) 1.5 H Eos # (Auto) 0.0 Baso # (Auto) 0.0 Abs Immat Gran (auto) 0.05 H Absolute Neuts (auto) 11.2 H Absolute Nucleated RBC 0.000 Nucleated RBC % (auto) 0.0 ESR 36 H Anion Gap 10 L Estim Creat Clear Calc 103.4 Estimated GFR > 60 Random Glucose 77 Lactic Acid 1.5 Calcium 9.6 Total Bilirubin 0.9 AST 14 ALT 26 Alkaline Phosphatase 57 C-Reactive Protein 13.21 H Total Protein 7.4 Albumin 4.3 Imaging Radiologist's Impressions: Impressions Forearm CT 02/28/24 15:18 IMPRESSION: In the volar aspect aspect of the elbow, is a peripherally enhancing organized fluid collection in the soft tissue/subcutaneous tissues. This measures 6.4 x 2 x 2.7 cm. Findings are suspicious for abscess. There is extensive soft tissue swelling and subcutaneous edema/cellulitis in the visualized/imaged portions of the humerus and forearm. There is some edema/fluid also extending along the biceps tendon.. No additional organized fluid collections are identified. No significant ankle joint effusion is seen. Electronically signed by: Immanuel Dodd MD 02/28/2024 06:37 PM EDT RP Assessment and Plan (1) Cellulitis of right forearm: Status: Acute Plan 38M presented with right arm erythema, pain, swelling right forearm cellulitis and abscess no IVDA, no DM IV vanco, npo after midnight for washout by ortho 02/29/24 low risk for dvt - early ambulation full code given extent of celulitis and abscess, and need for surgery, expected to require atleast 2 midnights inpatient Quality Stroke Does the patient have a stroke diagnosis?: No VTE Prior VTE?: No VTE Risk Level:: Medical - low VTE Device Contraindication: Treatment Not Indicated VTE Drug Contraindication: Treatment Not Indicated
[2024-02-28 19:44] VITALS: BP 104/68; PULSE 65; RESP 16; TEMP 36; O2SAT 98
--- NOTE | 2024-02-28 20:03 | PHA.MEDREC ---
Addendum entered by Ozzy Soriano [facility] 02/28/24 20:38: MED REC CHECKED BY [facility] Original Note: Pharmacy Consult ? Medication Reconciliation Pharmacy has completed the medication reconciliation.
[2024-02-28 21:05] VITALS: BP 127/68; PULSE 67; RESP 18; TEMP 36.3; O2SAT 94
[2024-02-28] MEDS: 0.9 % Sodium Chloride Flush 3 ML SYRINGE IVFLUSH (21:24)
[2024-02-29] VITALS (8 sets, daily range): BP systolic 105–134; BP diastolic 46–65; PULSE 59–69; RESP 16–18; TEMP 36.1–36.5; O2SAT 96–99
[2024-02-29] MEDS: vancomycin HCL 1,000 MG in 0.9 % Sodium Chloride 250 ML 270 MG IV (06:20)
[2024-02-29 06:28] LABS: Hematocrit 37.5 % (42.0-52.0); Hemoglobin 13.4 g/dl (14.0-18.0); Mean Corpuscular HGB Conc 35.7 g/dl (31.0-36.0); Mean Corpuscular Hemoglobin 31.8 pg (27.0-33.0); Mean Corpuscular Volume 89.1 fL (80.0-98.0); Mean Platelet Volume 9.6 fL (9.4-12.4); Platelet Count 204 X10*3/uL (160-400); Red Blood Count 4.21 X10*6/uL (4.60-5.80); Red Cell Distribution Width 11.9 % (11.0-16.0); White Blood Count 7.8 X10*3/uL (4.8-10.8)
[2024-02-29 06:43] LABS: Anion Gap 10 (12-20); Blood Urea Nitrogen 13 mg/dL (9-16); Calcium 9.1 mg/dL (8.4-10.2); Carbon Dioxide 25 mmol/L (22-29); Chloride 108 mmol/L (96-108); Creatinine Clr Calc Pharmacy 125.2; Estimated Glomerular Filt Rate > 60; Glucose Fasting 95 mg/dL (60-99); Sodium 139 mmol/L (135-145)
[2024-02-29] MEDS: 0.9 % Sodium Chloride Flush 3 ML SYRINGE IVFLUSH ×2 (08:00→22:30)
--- NOTE | 2024-02-29 08:12 | HO.ANESPROP2 ---
PMFSH Active Problems Active Problems: All Active Problems Cellulitis of right forearm (Acute) Abscess of right forearm (Acute) Past Medical History Functional capacity: independent ambulation Family History Family history of problems with anesthesia: No Surgical History History of Problems with Anesthesia: No Social History Social History Household Members: Family Housing: House Do you presently have visiting nurse or other home services: No Patient Tobacco Use Status: Current everyday Tobacco user Tobacco use type: Cigarette Cigarettes Per Day: 1 Substance Use Type: Crack/Cocaine Meds Allergies Allergy/AdvReac Type Severity Reaction Status Date / Time No Known Allergies Allergy Verified 02/28/24 14:16 Active Medications: Current Medications Acetaminophen (Acetaminophen 325 Mg Tablet) 650 mg PO Q6H PRN PRN Reason: Pain, Mild (Pain Scale 1-3), fever or headache Calcium Carbonate (Calcium Carbonate 750 Mg Tab.Chew) 750 mg PO Q4H PRN PRN Reason: Heartburn Vancomycin HCl 1,000 mg/ (Sodium Chloride) 270 mls @ 270 mls/hr IV Q12H [facility] Last Infusion: 02/29/24 07:59 Dose: Infused Magnesium Hydroxide (Milk Of Magnesia 30 Ml Oral.Susp) 30 ml PO DAILY PRN PRN Reason: Constipation Melatonin (Melatonin 3 Mg Tablet) 6 mg PO BEDTIME PRN PRN Reason: Insomnia Pharmacy Consult (Consult Rx Vancomycin Dosing) 1 each MISCELLANE DAILY PRN PRN Reason: Consult order Sodium Chloride (0.9 % Sodium Chloride Flush 3 Ml Syringe) 3 ml IVFLUSH QSHIFT [facility] Last Admin: 02/28/24 21:24 Dose: 3 ml Home Medications ?Medication ?Instructions ?Recorded ?Confirmed ?Last Taken ?Type No Known Home Meds 02/28/24 02/28/24 Unknown History Exam Height,Weight and Vital Signs: Height 6 ft Weight 102.4 kg Last Vital Signs Temp 97.7 F 02/29/24 07:35 Pulse 69 02/29/24 07:35 Resp 16 02/29/24 07:35 BP 134/65 02/29/24 07:35 Pulse Ox 97 02/29/24 07:35 O2 Del Method Room Air 02/29/24 07:35 Pertinent Lab Results Pertinent Lab Results: Laboratory Tests 02/28/24 02/28/24 02/28/24 10:25 13:37 13:40 WBC 14.2 H RBC 4.49 L Hgb 14.4 Hct 39.5 L MCV 88.0 MCH 32.1 MCHC 36.5 H RDW 11.8 Plt Count 221 MPV 9.1 L Immature Gran % (Auto) 0.4 Neut % (Auto) 78.4 H Lymph % (Auto) 10.1 L [place] % (Auto) 10.6 Eos % (Auto) 0.3 Baso % (Auto) 0.2 Lymph # (Auto) 1.4 [place] # (Auto) 1.5 H Eos # (Auto) 0.0 Baso # (Auto) 0.0 Abs Immat Gran (auto) 0.05 H Absolute Neuts (auto) 11.2 H Absolute Nucleated RBC 0.000 Nucleated RBC % (auto) 0.0 ESR 36 H Sodium 136 Potassium 4.4 Chloride 101 Carbon Dioxide 29 Anion Gap 10 L BUN 9 Creatinine 1.21 Estim Creat Clear Calc 103.4 Estimated GFR > 60 Random Glucose 77 Fasting Glucose Lactic Acid 1.5 Calcium 9.6 Total Bilirubin 0.9 AST 14 ALT 26 Alkaline Phosphatase 57 C-Reactive Protein 13.21 H Total Protein 7.4 Albumin 4.3 02/29/24 06:10 WBC 7.8 RBC 4.21 L Hgb 13.4 L Hct 37.5 L MCV 89.1 MCH 31.8 MCHC 35.7 RDW 11.9 Plt Count 204 MPV 9.6 Immature Gran % (Auto) Neut % (Auto) Lymph % (Auto) [place] % (Auto) Eos % (Auto) Baso % (Auto) Lymph # (Auto) [place] # (Auto) Eos # (Auto) Baso # (Auto) Abs Immat Gran (auto) Absolute Neuts (auto) Absolute Nucleated RBC 0.000 Nucleated RBC % (auto) 0.0 ESR Sodium 139 Potassium 4.0 Chloride 108 Carbon Dioxide 25 Anion Gap 10 L BUN 13 Creatinine 1.00 Estim Creat Clear Calc 125.2 Estimated GFR > 60 Random Glucose Fasting Glucose 95 Lactic Acid Calcium 9.1 Total Bilirubin AST ALT Alkaline Phosphatase C-Reactive Protein Total Protein Albumin Airway Mallampati Class: II TM Dist: >3cm Neck ROM: Full Heart: RRR Lungs: CTA Assessment and Plan Assessment Anesthesia Assessment: Anesthesia Plan Discussed and Chart Reviewed Final Anesthetic Review Family History of Problems with Anesthesia: No History of Problems with Anesthesia: No NPO: Yes ASA Class: II and Emergency Final Preanesthetic Review: Meds/Allgs Chart Reviewed, Consent Obtained/Reviewed and Anes Risks/Benef Reviewed Patient Risk: Low Procedure Risk: Low Anesthetic Plan Anesthetic Plan: GA Disposition: Standard PACU
--- NOTE | 2024-02-29 08:21 | P.HPSUR_ITS ---
Pre-Procedural Eval Section A - 24 Hr Update-Section A only Date of Service: 02/29/24 The patient is an INPATIENT: Yes Changes since office visit: No Cold of Flu in the past 2 weeks, No New Medical Problems, No Changes in Medication and No Patient answered all questions The patient has been examined within 24 hours of the surgical procedure. The History & Physical has been completed within 30 days and I have reviewed it.: Yes Section B - Complete if H&P > 30 days Chief Complaint: Swollen R Arm No Injury Allergies: Allergies Allergy/AdvReac Type Severity Reaction Status Date / Time No Known Allergies Allergy Verified 02/28/24 14:16 Exam Exam Comment: The patient was seen by me in preop hold. He has visible swelling of the right upper arm and forearm. Patient reports that the swelling has improved considerably since yesterday. He has a 4 mm diameter wound where the abscess spontaneously drained in the medial aspect of his antecubital fossa. Can actively flex and extend his fingers without difficulty or pain. Mild tenderness in the volar proximal forearm both dorsally and volarly, but the patient says it is all quite a bit better than it was yesterday. The risks and benefits of operative treatment were discussed with the patient and the patient wishes to proceed with surgery. These risks include, but are not limited to risk of damage to blood vessels, nerves, tendons, infection, recurrence, incomplete relief of preoperative symptoms, persistent pain, possible need for further surgery and the risks associated with regional blocks and anesthesia. Plan Diagnosis/Plan: Unchanged I have reviewed the history and physical and performed a pertinent physical examination on my patient. No changes have occurred unless specified. The risks and benefits of operative treatment were discussed with the patient and the patient wishes to proceed with surgery. These risks include, but are not limited to risk of damage to blood vessels, nerves, tendons, infection, recurrence, incomplete relief of preoperative symptoms, persistent pain, possible need for further surgery and the risks associated with regional blocks and anesthesia. The plan is to take the patient to the operating room today for the following procedures: 1. Right antecubital fossa abscess and associated cellulitis 2. [ ] All of the preoperative paperwork including the consent was filled out today. All the patient's questions were answered. The patient understands that they will be contacted by our director of surgery soon to schedule this procedure Time Spent With Patient Time: Total time managing care of this patient today ____ minutes.
--- NOTE | 2024-02-29 08:25 | W.PM.OPN ---
Operative Note Operative Note Date of Service: 02/29/24 Narrative: Operative Note Narrative: Preop diagnosis: Right antecubital fossa abscess Postop diagnosis: Same Procedure: I&D right antecubital fossa abscess Surgeon: Kyra Deleon MD Hospital Secretary: Maulik CAMARENA Anesthesia: General Anesthesia Findings: Partially ruptured right antecubital abscess. Creamy yellow purulence expressed Implants: Iodoform gauze drains x2 Tourniquet time: 7 minutes EBL: 5.0 ml Specimen: Cultures sent Drains: None Complications: None Disposition: Brought to the recovery room in stable condition Plan: Admit back to floor for IV antibiotics Pull drains tomorrow and perform a wound check. Daily dressing changes until healed. Indications: The patient is a 38 year old man with a right antecubital fossa abscess with associated cellulitis involving the right forearm and distal aspect of the upper arm. There was spontaneous drainage of the abscess and some improvement in his swelling and pain overnight. . The risks and benefits of operative treatment, including but not limited to risk of damage to blood vessels, nerves, tendons, infection, recurrence, persistent pain or numbness, incomplete resolution of preoperative symptoms, or need for further surgery were discussed with the patient and they wished to proceed with surgery. Procedure: Once consent was obtained patient was brought back to the operating suite and placed in the operating table in a supine position. General Anesthesia was administered by the anesthesia team. A tourniquet was applied to the proximal aspect of the right upper extremity and the limb was prepped and draped in a standard surgical fashion. The limb was elevated and the tourniquet inflated to 250 mm of mercury for a total tourniquet time of 7 minutes. He had a ruptured abscess over the medial central aspect of the right antecubital fossa. I passed a hemostat from proximal to distal into the abscess cavity. I then made a 1 cm incision extending the opening of the ruptured abscess cavity. This was done using a 15. Blade through the skin into the subcutaneous tissue and abscess cavity. I gently explored the abscess cavity with a hemostat found that it actually was approximately 4-5 cm in diameter. We found some bloody creamy yellow purulence remaining, and this was cultured. We then expressed some of the purulence and then copiously irrigated the abscess cavity with normal saline. At this point the tourniquet was deflated and hemostasis obtained with a brief period of local pressure the wound was left open and no sutures were placed. Once satisfied with our I&D I then placed 2 strips of iodoform gauze into the abscess cavity to promote continued drainage and a sterile dressing was applied. The patient appears to have tolerated the procedure well and with no complications. All digits were well vascularized conclusion of the case.
--- NOTE | 2024-02-29 08:40 | P.CONAN_ITS ---
PMFSH Active Problems Active Problems: All Active Problems Cellulitis of right forearm (Acute) Abscess of right forearm (Acute) Past Medical History Functional capacity: independent ambulation Family History Family history of problems with anesthesia: No Surgical History History of Problems with Anesthesia: No Social History Social History Household Members: Family Housing: House Do you presently have visiting nurse or other home services: No Patient Tobacco Use Status: Current everyday Tobacco user Tobacco use type: Cigarette Cigarettes Per Day: 1 Substance Use Type: Crack/Cocaine Meds Allergies Allergy/AdvReac Type Severity Reaction Status Date / Time No Known Allergies Allergy Verified 02/28/24 14:16 Active Medications: Current Medications Acetaminophen (Acetaminophen 325 Mg Tablet) 650 mg PO Q6H PRN PRN Reason: Pain, Mild (Pain Scale 1-3), fever or headache Calcium Carbonate (Calcium Carbonate 750 Mg Tab.Chew) 750 mg PO Q4H PRN PRN Reason: Heartburn Vancomycin HCl 1,000 mg/ (Sodium Chloride) 270 mls @ 270 mls/hr IV Q12H [facility] Last Infusion: 02/29/24 07:59 Dose: Infused Magnesium Hydroxide (Milk Of Magnesia 30 Ml Oral.Susp) 30 ml PO DAILY PRN PRN Reason: Constipation Melatonin (Melatonin 3 Mg Tablet) 6 mg PO BEDTIME PRN PRN Reason: Insomnia Pharmacy Consult (Consult Rx Vancomycin Dosing) 1 each MISCELLANE DAILY PRN PRN Reason: Consult order Sodium Chloride (0.9 % Sodium Chloride Flush 3 Ml Syringe) 3 ml IVFLUSH QSHIFT [facility] Last Admin: 02/28/24 21:24 Dose: 3 ml Home Medications ?Medication ?Instructions ?Recorded ?Confirmed ?Last Taken ?Type No Known Home Meds 02/28/24 02/28/24 Unknown History Exam Height,Weight and Vital Signs: Height 6 ft Weight 102.4 kg Last Vital Signs Temp 97.7 F 02/29/24 07:35 Pulse 69 02/29/24 07:35 Resp 16 02/29/24 07:35 BP 134/65 02/29/24 07:35 Pulse Ox 97 02/29/24 07:35 O2 Del Method Room Air 02/29/24 07:35 Pertinent Lab Results Pertinent Lab Results: Laboratory Tests 02/28/24 02/28/24 02/28/24 10:25 13:37 13:40 WBC 14.2 H RBC 4.49 L Hgb 14.4 Hct 39.5 L MCV 88.0 MCH 32.1 MCHC 36.5 H RDW 11.8 Plt Count 221 MPV 9.1 L Immature Gran % (Auto) 0.4 Neut % (Auto) 78.4 H Lymph % (Auto) 10.1 L [place] % (Auto) 10.6 Eos % (Auto) 0.3 Baso % (Auto) 0.2 Lymph # (Auto) 1.4 [place] # (Auto) 1.5 H Eos # (Auto) 0.0 Baso # (Auto) 0.0 Abs Immat Gran (auto) 0.05 H Absolute Neuts (auto) 11.2 H Absolute Nucleated RBC 0.000 Nucleated RBC % (auto) 0.0 ESR 36 H Sodium 136 Potassium 4.4 Chloride 101 Carbon Dioxide 29 Anion Gap 10 L BUN 9 Creatinine 1.21 Estim Creat Clear Calc 103.4 Estimated GFR > 60 Random Glucose 77 Fasting Glucose Lactic Acid 1.5 Calcium 9.6 Total Bilirubin 0.9 AST 14 ALT 26 Alkaline Phosphatase 57 C-Reactive Protein 13.21 H Total Protein 7.4 Albumin 4.3 02/29/24 06:10 WBC 7.8 RBC 4.21 L Hgb 13.4 L Hct 37.5 L MCV 89.1 MCH 31.8 MCHC 35.7 RDW 11.9 Plt Count 204 MPV 9.6 Immature Gran % (Auto) Neut % (Auto) Lymph % (Auto) [place] % (Auto) Eos % (Auto) Baso % (Auto) Lymph # (Auto) [place] # (Auto) Eos # (Auto) Baso # (Auto) Abs Immat Gran (auto) Absolute Neuts (auto) Absolute Nucleated RBC 0.000 Nucleated RBC % (auto) 0.0 ESR Sodium 139 Potassium 4.0 Chloride 108 Carbon Dioxide 25 Anion Gap 10 L BUN 13 Creatinine 1.00 Estim Creat Clear Calc 125.2 Estimated GFR > 60 Random Glucose Fasting Glucose 95 Lactic Acid Calcium 9.1 Total Bilirubin AST ALT Alkaline Phosphatase C-Reactive Protein Total Protein Albumin Assessment and Plan Assessment Anesthesia Assessment: Anesthesia Plan Discussed, Smoking Cess. Discussed and Chart Reviewed Final Anesthetic Review Family History of Problems with Anesthesia: No History of Problems with Anesthesia: No NPO: Yes ASA Class: II and Emergency Final Preanesthetic Review: Meds/Allgs Chart Reviewed, Consent Obtained/Reviewed and Anes Risks/Benef Reviewed Patient Risk: Low Procedure Risk: Low Anesthetic Plan Anesthetic Plan: GA Disposition: Standard PACU
[2024-02-29] MEDS: Acetaminophen 1,000 MG/100 ML PIGGYBACK 400 MG IV (09:09)
--- NOTE | 2024-02-29 11:17 | HO.PM.IMPN ---
Subjective Subjective Date of Service: 02/29/24 Interval History: Returned from OR underwent I&D of right antecubital fossa abscess by Orthopedic surgery, creamy yellow purulence expressed, Postprocedure patient denies pain, feeling tired denies fever, no chills, no nausea vomiting lightheadedness or dizziness. Review of Systems All other system reviewed and are negative Physical Exam Vital Signs: Vital Signs: Last Vital Signs Temp 97.2 F 02/29/24 09:58 Pulse 59 02/29/24 09:58 Resp 16 02/29/24 09:58 BP 116/53 L 02/29/24 09:58 Pulse Ox 97 02/29/24 09:58 O2 Del Method Room Air 02/29/24 09:58 BMI result Body Mass Index 30.6 Const: Other: General awake alert x3, in no acute distress. Neck no JVD. CVS regular rate rhythm, Respiratory lungs clear to auscultation, no respiratory distress Gastrointestinal abdomen soft, non tender, bowel sounds audible Extremities LE no edema. Neuro non focal Right forearm dressing in place Objective Data Active Medications Acetaminophen (Acetaminophen 325 Mg Tablet) 650 mg PO Q6H PRN PRN Reason: Pain, Mild (Pain Scale 1-3), fever or headache Calcium Carbonate (Calcium Carbonate 750 Mg Tab.Chew) 750 mg PO Q4H PRN PRN Reason: Heartburn Fentanyl (Fentanyl Citrate/Pf 100 Mcg/2 Ml Vial) 25 mcg IVPUSH Q5M PRN PRN Reason: Pain, Moderate to Severe (Pain Scale 4-10) Stop: 02/29/24 14:41 Vancomycin HCl 1,000 mg/ (Sodium Chloride) 270 mls @ 270 mls/hr IV Q12H [facility] Last Infusion: 02/29/24 07:59 Dose: Infused Documented By: SAVAGE Magnesium Hydroxide (Milk Of Magnesia 30 Ml Oral.Susp) 30 ml PO DAILY PRN PRN Reason: Constipation Melatonin (Melatonin 3 Mg Tablet) 6 mg PO BEDTIME PRN PRN Reason: Insomnia Naloxone HCl (Naloxone Hcl 0.4 Mg/Ml Vial) 0.04 mg IVPUSH Q5M PRN PRN Reason: Excessive sedation or RR < 8 Ondansetron HCl (Ondansetron Hcl 4 Mg/2 Ml Vial) 4 mg IVPUSH ONCE PRN PRN Reason: Nausea and Vomiting Stop: 02/29/24 14:41 Pharmacy Consult (Consult Rx Vancomycin Dosing) 1 each MISCELLANE DAILY PRN PRN Reason: Consult order Sodium Chloride (0.9 % Sodium Chloride Flush 3 Ml Syringe) [facility] Last Admin: 02/29/24 08:00 Dose: 3 ml Documented By: SAVAGE Labs 02/29/24 06:10 02/29/24 06:10 Labs: Laboratory Results - last 24 hr 02/28/24 02/28/24 02/29/24 13:37 13:40 06:10 MCV 89.1 MCH 31.8 MCHC 35.7 RDW 11.9 Plt Count 204 MPV 9.6 Absolute Nucleated RBC 0.000 Nucleated RBC % (auto) 0.0 ESR 36 H Anion Gap 10 L Estim Creat Clear Calc 125.2 Estimated GFR > 60 Fasting Glucose 95 Lactic Acid 1.5 Calcium 9.1 C-Reactive Protein 13.21 H Microbiology Microbiology Results: Microbiology 02/29/24 Unknown Gram Stain - Final Arm Right 02/28/24 18:23 Gram Stain - Final Forearm Right Routine Culture - Preliminary Culture in progress. Assessment and Plan (1) Cellulitis of right forearm: Status: Acute (2) Abscess of right forearm: Status: Acute Plan 38M with no significant past medical history presented with right arm erythema, pain, swelling right forearm cellulitis and abscess no IVDA, no DM Status post I&D in OR by Orthopedic surgery Continue IV vanco, started on 02/28 , WBC normalized, blood cultures pending, normal renal function Ortho recommend to Pull drains tomorrow and will perform a wound check. Daily dressing changes until healed. low risk for dvt - early ambulation full code given extent of celulitis and abscess, status post I and D patient will require continued inpatient hospitalization for IV antibiotics and close wound checks. Quality Stroke Does the patient have a stroke diagnosis?: No VTE Prior VTE?: No VTE Risk Level:: Medical - low VTE Device Contraindication: Treatment Not Indicated VTE Drug Contraindication: Treatment Not Indicated
--- NOTE | 2024-02-29 15:22 | MHC.CM.NN ---
CM ATTEMPTED TO SEE PT WHO WAS SLEEPING CM TO REVISIT
[2024-02-29 17:38] LABS: Vancomycin Random 4.3 mcg/mL (15-20)
[2024-02-29] MEDS: vancomycin HCL 1,500 MG in 0.9 % Sodium Chloride 500 ML 333.33 MG IV (18:24)
[2024-02-29] MEDS: Acetaminophen 325 MG TABLET 650 MG PO (21:16)
[2024-03-01] VITALS: BP 132/60; PULSE 71; RESP 16; TEMP 36.2; O2SAT 97
[2024-03-01] MEDS: vancomycin HCL 1,500 MG in 0.9 % Sodium Chloride 500 ML 333.33 MG IV ×2 (02:07→11:05)
[2024-03-01 06:18] LABS: Creatinine Clr Calc Pharmacy 158.4; Estimated Glomerular Filt Rate > 60
[2024-03-01 07:24] VITALS: BP 122/65; PULSE 60; RESP 16; TEMP 36.3; O2SAT 98
[2024-03-01 08:40] VITALS: O2SAT 97
[2024-03-01] MEDS: 0.9 % Sodium Chloride Flush 3 ML SYRINGE IVFLUSH ×2 (09:30→19:23)
--- NOTE | 2024-03-01 10:33 | PM.PNORT ---
Subjective Subjective Date of Service: 03/01/24 Interval history: 38-year-old male admitted to the hospital for treatment of abscess of right forearm Status post I and D of right volar forearm, DOS 02/29/2024 Today, patient is resting comfortably in bed Patient states that the drains in his right forearm have become ?uncomfortable? and inquires if they will be removed today Patient reports that they did have to change his dressing this morning due to saturation Other acute complaints or concerns at this time Physical Exam Vital Signs: Vital Signs: Last Vital Signs Temp 97.3 F 03/01/24 07:24 Pulse 60 03/01/24 07:24 Resp 16 03/01/24 07:24 BP 122/65 03/01/24 07:24 Pulse Ox 97 03/01/24 08:40 O2 Del Method Room Air, Non-Kathy reather Mask 03/01/24 08:40 BMI result Body Mass Index 30.6 Extrem: Other: Patient is alert, oriented, and in no acute distress. Neuro: Patient reports normal sensation of the tips of all digits of the right hand at this time Vascular: Cap refill brisk Pain: Patient reports tenderness to palpation about the surgery site ROM: Patient is able to make a closed fist and extend the digits of the right hand fully without difficulty Patient is able to flex and extend the right elbow fully without difficulty Skin: Open incision site noted on the volar aspect of the proximal right forearm with drains in place, small amount of purulent discharge noted on drains Drainage noted on dressing when removed General: Erythema and edema surrounding the surgery site significantly improved from yesterday No ecchymosis noted Psych: Appears grossly normal Affect normal Attitude cooperative Procedures Date of Service Date of Service: 03/01/24 Progress Note: A&P Assessment and plan (1) Abscess of right forearm: Status: Acute (2) Cellulitis of right forearm: Status: Acute Plan 1. Abscess of right volar forearm status post I and D DOS 02/29/2024 Patient appears to be recovering well postoperatively Patient is educated about typical recovery course Drains removed and dressing changed today Patient is educated that his edema and erythema have improved significantly with I and D and IV antibiotics Continue with daily dressing changes, as well as dressing changes as needed for saturation Continue IV antibiotics per Medicine Continue with all other recommendations per Medicine Patient should have close follow-up with Orthopedics office upon discharge Time Spent With Patient Time: Total time managing care of this patient today ____ minutes. Quality Stroke Does the patient have a stroke diagnosis?: No VTE Prior VTE?: No VTE Risk Level:: Medical - low VTE Device Contraindication: Treatment Not Indicated VTE Drug Contraindication: Treatment Not Indicated
[2024-03-01] MEDS: oxyCODONE HCl Immed Release 5 MG TABLET PO ×2 (11:05→17:28)
--- NOTE | 2024-03-01 12:24 | HO.POSTANES ---
Post Anesthesia Evaluation Post Anesthesia Evaluation Date of Service: 03/01/24 Vital Signs: Vital Signs Temp Pulse Resp BP Pulse Ox O2 Del Method 03/01/24 08:40 97 Room Air, Non-Rebreather Mask 03/01/24 07:24 97.3 F 60 16 122/65 98 Room Air Anesthesia: General LMA Mental Status: Awake Pain Control: Satisfactory Nausea/Vomiting: None Hydration: Adequate Anesthesia-Related Issues: No Anes. Related Issues
--- NOTE | 2024-03-01 12:43 | HO.PM.IMPN ---
Subjective Subjective Date of Service: 03/01/24 Interval History: Complaining of pain right forearm at site of I and D, denies fever, no chills, tolerating diet ,with no nausea, vomiting, no abdominal pain ,complaining of constipation. Review of Systems All other system reviewed and are negative Physical Exam Vital Signs: Vital Signs: Last Vital Signs Temp 97.3 F 03/01/24 07:24 Pulse 60 03/01/24 07:24 Resp 16 03/01/24 07:24 BP 122/65 03/01/24 07:24 Pulse Ox 97 03/01/24 08:40 O2 Del Method Room Air, Non-Kathy reather Mask 03/01/24 08:40 BMI result Body Mass Index 30.6 Const: Other: General awake alert x3, in no acute distress. Neck no JVD. CVS regular rate rhythm, Respiratory lungs clear to auscultation, no respiratory distress Gastrointestinal abdomen soft, non tender, bowel sounds audible Extremities LE no edema. Neuro non focal Right forearm erythema and edema surrounding I and D significantly improved from yesterday,, open incision site with scant purulent discharge, drains removed by Orthopedic team Objective Data Active Medications Acetaminophen (Acetaminophen 325 Mg Tablet) 650 mg PO Q6H PRN PRN Reason: Pain, Mild (Pain Scale 1-3), fever or headache Last Admin: 02/29/24 21:16 Dose: 650 mg Documented By: PACO Calcium Carbonate (Calcium Carbonate 750 Mg Tab.Chew) 750 mg PO Q4H PRN PRN Reason: Heartburn Vancomycin HCl 1,500 mg/ (Sodium Chloride) 500 mls @ 333.333 mls/hr IV Q8H [facility] Last Admin: 03/01/24 11:05 Dose: 333.33 mls/hr Documented By: SAVAGE Magnesium Hydroxide (Milk Of Magnesia 30 Ml Oral.Susp) 30 ml PO DAILY PRN PRN Reason: Constipation Melatonin (Melatonin 3 Mg Tablet) 6 mg PO BEDTIME PRN PRN Reason: Insomnia Naloxone HCl (Naloxone Hcl 0.4 Mg/Ml Vial) 0.04 mg IVPUSH Q5M PRN PRN Reason: Excessive sedation or RR < 8 Oxycodone HCl (Oxycodone Hcl Immed Release 5 Mg Tablet) 5 mg PO Q6H PRN PRN Reason: Pain, Moderate(Pain Scale 4-6) Last Admin: 03/01/24 11:05 Dose: 5 mg Documented By: SAVAGE Pharmacy Consult (Consult Rx Vancomycin Dosing) 1 each MISCELLANE DAILY PRN PRN Reason: Consult order Sodium Chloride (0.9 % Sodium Chloride Flush 3 Ml Syringe) 3 ml IVFLUSH [facility] Last Admin: 03/01/24 09:30 Dose: 3 ml Documented By: SAVAGE Labs 02/29/24 06:10 03/01/24 05:36 Labs: Laboratory Results - last 24 hr 02/29/24 03/01/24 17:11 05:36 Hold Purple Top SEE NOTE Estim Creat Clear Calc 158.4 Estimated GFR > 60 Random Vancomycin 4.3 L Blood Type A Positive Antibody Screen NEGATIVE Microbiology Microbiology Results: Microbiology 02/28/24 18:23 Gram Stain - Final Forearm Right Routine Culture - Preliminary Streptococcus group c 02/29/24 Unknown Gram Stain - Final Arm Right Routine Culture - Preliminary Streptococcus group c 02/28/24 13:36 Blood Culture - Preliminary Blood - Venous No growth after 24 hours. 02/28/24 13:36 Blood Culture - Preliminary Blood - Venous No growth after 24 hours. Assessment and Plan (1) Bacteremia: Status: Acute Plan 38M with no significant past medical history presented with right arm erythema, pain, swelling right forearm cellulitis and abscess and Streptococcus group C bacteremia no IVDA, no DM Status post I&D in OR by Orthopedic surgery 02/28, drain removed today, significant improvement in erythema and swelling on IV vanco, started on 02/28 , WBC normalized, normal renal function Will DC IV vanco in place on IV ceftriaxone, will repeat blood cultures x2 Daily dressing change /and as needed for saturation. Outpatient follow-up with Orthopedic surgery. constipation add stool softener. low risk for dvt - early ambulation full code given extent of celulitis and abscess, bacteremia will require continued inpatient hospitalization for IV antibiotics and close wound checks. Quality Stroke Does the patient have a stroke diagnosis?: No VTE Prior VTE?: No VTE Risk Level:: Medical - low VTE Device Contraindication: Treatment Not Indicated VTE Drug Contraindication: Treatment Not Indicated
[2024-03-01] MEDS: Acetaminophen 325 MG TABLET 650 MG PO (12:50)
--- NOTE | 2024-03-01 13:06 | MHC.CM.PN ---
PATIENT IS INDEPENDENT WITH ADLS. NO DME OR VNA HE HAS TRANSPORT HOME AT TIME OF [place]. NO HCP ON FILE. HE STATES THAT HE RECENTLY MOVED HERE 1 MONTH AGO FROM [place] AND BELIEVES HE STILL HAS HIS [employer] INSURANCE. FACE SHEET FAXED TO [employer] TO INQUIRE AND ASSIST WITH BENEFITS IF HE NO LONGER HAS THEM. PCP RESOURCE GUIDE GIVEN TO PATIENT PER HIS REQUEST. HE WILL WAIT TO HEAR WHAT INSURANCE HE DOES HAVE PRIOR TO MAKING A CALL. PLAN IS HOME - SELF CARE AT [place].
[2024-03-01] MEDS: cefTRIAXone sodium 2 GM in 0.9 % Sodium Chloride 50 ML IV (14:12)
[2024-03-01 15:30] VITALS: BP 129/63; PULSE 58; RESP 18; TEMP 36.3; O2SAT 99
[2024-03-01 23:41] VITALS: BP 129/60; PULSE 60; RESP 20; TEMP 36.3; O2SAT 98
[2024-03-02] MEDS: 0.9 % Sodium Chloride Flush 3 ML SYRINGE IVFLUSH ×3 (07:02→19:53)
[2024-03-02 07:26] VITALS: BP 113/60; PULSE 60; RESP 14; TEMP 36.2; O2SAT 97
--- NOTE | 2024-03-02 08:44 | PM.PNORT ---
Subjective Subjective Date of Service: 03/02/24 Interval history: 38-year-old male admitted to the hospital for treatment of abscess of right forearm Status post I and D of right volar forearm, DOS 02/29/2024 Today, patient is resting comfortably in bed Patient reports that he does still have some mild discomfort in the right forearm, but his overall condition has improved vastly since prior to surgery Patient states that had to remove the Robel bandage last night due to it itching Other acute complaints or concerns at this time Physical Exam Vital Signs: Vital Signs: Last Vital Signs Temp 97.1 F 03/02/24 07:26 Pulse 60 03/02/24 07:26 Resp 14 03/02/24 07:26 BP 113/60 03/02/24 07:26 Pulse Ox 97 03/02/24 07:26 O2 Del Method Room Air 03/02/24 07:26 BMI result Body Mass Index 30.6 Extrem: Other: Patient is alert, oriented, and in no acute distress. Neuro: Patient reports normal sensation of the tips of all digits of the right hand at this time Vascular: Cap refill brisk Pain: Patient reports tenderness to palpation about the surgery site ROM: Patient is able to make a closed fist and extend the digits of the right hand fully without difficulty Patient is able to flex and extend the right elbow fully without difficulty Skin: Open incision site noted on the volar aspect of the proximal right forearm Drainage noted on dressing when removed General: Erythema and edema surrounding the surgery site significantly improved No ecchymosis noted Psych: Appears grossly normal Affect normal Attitude cooperative Procedures Date of Service Date of Service: 03/02/24 Progress Note: A&P Assessment and plan (1) Abscess of right forearm: Status: Acute (2) Cellulitis of right forearm: Status: Acute Plan 1. Abscess of right volar forearm status post I and D DOS 02/29/2024 Patient appears to be recovering well postoperatively Patient is educated about typical recovery course Drains removed and dressing changed today Patient is educated that his edema and erythema have improved significantly with I and D and IV antibiotics Continue with daily dressing changes, as well as dressing changes as needed for saturation Continue IV antibiotics per Medicine Continue with all other recommendations per Medicine Patient should have close follow-up with Orthopedics office upon discharge Time Spent With Patient Time: Total time managing care of this patient today ____ minutes. Quality Stroke Does the patient have a stroke diagnosis?: No VTE Prior VTE?: No VTE Risk Level:: Medical - low VTE Device Contraindication: Treatment Not Indicated VTE Drug Contraindication: Treatment Not Indicated
[2024-03-02] MEDS: oxyCODONE HCl Immed Release 5 MG TABLET PO ×2 (09:18→19:51)
--- NOTE | 2024-03-02 11:52 | MHC.CM.PN ---
Per MD rounds patient not medically cleared for dc. CM will continue to follow.
--- NOTE | 2024-03-02 12:03 | HO.PM.IMPN ---
Subjective Subjective Date of Service: 03/02/24 Interval History: Feeling better still c/o right arm swelling and pain, no fevers, no chills, no other acute events overnight tolerating diet. Review of Systems All other system reviewed and are negative. Physical Exam Vital Signs: Vital Signs: Last Vital Signs Temp 97.1 F 03/02/24 07:26 Pulse 60 03/02/24 07:26 Resp 14 03/02/24 07:26 BP 113/60 03/02/24 07:26 Pulse Ox 97 03/02/24 07:26 O2 Del Method Room Air 03/02/24 07:26 BMI result Body Mass Index 30.6 Const: Other: General awake alert x3, in no acute distress. Neck no JVD. CVS regular rate rhythm, Respiratory lungs clear to auscultation, no respiratory distress Gastrointestinal abdomen soft, non tender, bowel sounds audible Extremities LE no edema. Neuro non focal Right forearm erythema and edema surrounding I and D significantly improved , mild persistent erythema and edema, open incision site with scant drainage, Good range of motion right elbow and fingers Objective Data Active Medications Acetaminophen (Acetaminophen 325 Mg Tablet) 650 mg PO Q6H PRN PRN Reason: Pain, Mild (Pain Scale 1-3), fever or headache Last Admin: 03/01/24 12:50 Dose: 650 mg Documented By: SAVAGE Calcium Carbonate (Calcium Carbonate 750 Mg Tab.Chew) 750 mg PO Q4H PRN PRN Reason: Heartburn Ceftriaxone Sodium 2 gm/ (Sodium Chloride) 50 mls @ 100 mls/hr IV Q24H [facility] Last Infusion: 03/01/24 14:53 Dose: Infused Documented By: COTEMA Magnesium Hydroxide (Milk Of Magnesia 30 Ml Oral.Susp) 30 ml PO DAILY PRN PRN Reason: Constipation Melatonin (Melatonin 3 Mg Tablet) 6 mg PO BEDTIME PRN PRN Reason: Insomnia Naloxone HCl (Naloxone Hcl 0.4 Mg/Ml Vial) 0.04 mg IVPUSH Q5M PRN PRN Reason: Excessive sedation or RR < 8 Oxycodone HCl (Oxycodone Hcl Immed Release 5 Mg Tablet) 5 mg PO Q6H PRN PRN Reason: Pain, Moderate(Pain Scale 4-6) Last Admin: 03/02/24 09:18 Dose: 5 mg Documented By: MIKAYLA Sodium Chloride (0.9 % Sodium Chloride Flush 3 Ml Syringe) 3 ml IVFLUSH QSHIFT [facility] Last Admin: 03/02/24 07:02 Dose: 3 ml Documented By: MIKAYLA Labs 02/29/24 06:10 03/01/24 05:36 Microbiology Microbiology Results: Microbiology 02/28/24 18:23 Gram Stain - Final Forearm Right Routine Culture - Preliminary Streptococcus group c 02/29/24 Unknown Gram Stain - Final Arm Right Routine Culture - Final Streptococcus group c 02/28/24 13:36 Blood Culture - Preliminary Blood - Venous No growth after 48 hours. 02/28/24 13:36 Blood Culture - Preliminary Blood - Venous No growth after 48 hours. Assessment and Plan (1) Cellulitis of right forearm: Status: Acute Plan 38M with no significant past medical history presented with right arm erythema, pain, swelling right forearm cellulitis and abscess and Streptococcus group C in wound cultures no IVDA, no DM Status post I&D in OR by Orthopedic surgery 02/28, drain removed 03/01, significant improvement in erythema and swelling s/p IV vanco, 02/28 to 03/01 , WBC normalized, normal renal function on IV ceftriaxone started 03/01 Daily dressing change /and as needed for saturation. Recommend to keep right arm elevated Outpatient follow-up with Orthopedic surgery. constipation continue stool softener. low risk for dvt - early ambulation full code given extent of celulitis and abscess, bacteremia will require continued inpatient hospitalization for IV antibiotics and close wound checks. Quality Stroke Does the patient have a stroke diagnosis?: No VTE Prior VTE?: No VTE Risk Level:: Medical - low VTE Device Contraindication: Treatment Not Indicated VTE Drug Contraindication: Treatment Not Indicated
[2024-03-02] MEDS: cefTRIAXone sodium 2 GM in 0.9 % Sodium Chloride 50 ML IV (13:43)
[2024-03-02 15:38] VITALS: BP 131/66; PULSE 58; RESP 18; TEMP 36.6; O2SAT 98
[2024-03-03 07:53] VITALS: BP 106/50; PULSE 60; RESP 12; TEMP 36.3; O2SAT 98
--- NOTE | 2024-03-03 08:32 | PM.PNORT ---
Subjective Subjective Date of Service: 03/03/24 Interval history: 38-year-old male admitted to the hospital for treatment of abscess of right forearm Status post I and D of right volar forearm, DOS 02/29/2024 Today, patient is resting comfortably in bed Patient reports that he does still have some mild discomfort in the right forearm, but his overall condition has improved vastly since prior to surgery Patient states that he removed his dressing overnight, due to it not being comfortable enough to sleep No Other acute complaints or concerns at this time Physical Exam Vital Signs: Vital Signs: Last Vital Signs Temp 97.4 F 03/03/24 07:53 Pulse 60 03/03/24 07:53 Resp 12 03/03/24 07:53 BP 106/50 L 03/03/24 07:53 Pulse Ox 98 03/03/24 07:53 O2 Del Method Room Air 03/03/24 07:53 BMI result Body Mass Index 30.6 Extrem: Other: Patient is alert, oriented, and in no acute distress. Neuro: Patient reports normal sensation of the tips of all digits of the right hand at this time Vascular: Cap refill brisk Pain: Patient reports tenderness to palpation about the surgery site ROM: Patient is able to make a closed fist and extend the digits of the right hand fully without difficulty Patient is able to flex and extend the right elbow fully without difficulty Skin: Open incision site noted on the volar aspect of the proximal right forearm General: Erythema and edema surrounding the surgery site significantly improved from yesterday No ecchymosis noted Psych: Appears grossly normal Affect normal Attitude cooperative Procedures Date of Service Date of Service: 03/03/24 Progress Note: A&P Assessment and plan (1) Abscess of right forearm: Status: Acute (2) Cellulitis of right forearm: Status: Acute Plan 1. Abscess of right volar forearm status post I and D DOS 02/29/2024 Patient appears to be recovering well postoperatively Patient is educated about typical recovery course Drains removed and dressing changed today Patient is educated that his edema and erythema have improved significantly with I and D and IV antibiotics Continue with daily dressing changes, as well as dressing changes as needed for saturation Patient adviseds that dressing should remain on wound at all times to prevent repeat infection Continue IV antibiotics per Medicine Continue with all other recommendations per Medicine Patient appears stable for discharge from orthopedic standpoint with close f/u on 03/06/24 at 1315 Patient should have close follow-up with Orthopedics office upon discharge Time Spent With Patient Time: Total time managing care of this patient today ____ minutes. Quality Stroke Does the patient have a stroke diagnosis?: No VTE Prior VTE?: No VTE Risk Level:: Medical - low VTE Device Contraindication: Treatment Not Indicated VTE Drug Contraindication: Treatment Not Indicated
--- NOTE | 2024-03-03 11:12 | HO.WOUND ---
Wound Consult cancelled 38yr old? [place] [facility] [place] 19:11 - See progress notes and H&P for detailed history.? Wound consult placed for Right arm wound. Brief chart review reveals patient is seen and followed by Orthopedic team and topical recommendation in place for Daily dressing changes. TT to Dr. Kincaid - will cancel wound consult and defer to Ortho team. Dr. Kincaid will work with ortho to clarify topical orders for direct care team to carry out.
--- NOTE | 2024-03-03 12:04 | MHC.CM.PN ---
Per MD rounds patient medically cleared for dc. Patient will receive teaching from RN for wound care prior to dc. Patient reports he will manage independently or have a friend at home help. Dry dressing. [facility] provider brochure given, along w/ medicaid info. Patient will establish care w/ PCP. Patient has own ride home. RN aware.
[2024-03-03] MEDS: cefTRIAXone sodium 2 GM in 0.9 % Sodium Chloride 50 ML IV (12:05)
--- NOTE | 2024-03-03 13:53 | P.DS_ITS ---
DS: Providers Provider Date of Service: 03/03/24 Date of admission: 02/28/24 19:11 Date of discharge: 03/03/24 Primary care physician: None Physician Consults: 02/28/24 19:01 Consult to Orthopedics Routine Consulting Provider: [facility] Reason for consultation: right arm abscess DS: Diagnosis Discharge Diagnosis (1) Abscess of right forearm: Status: Acute (2) Cellulitis of right forearm: Status: Acute DS: Summary Hospital Course Hospital Course: From the history and physical by the admitting hospitalist, Clovis Otto MD, 02/28/24: 38M no significant past medical history. Presented with right arm pain and swelling. Patient states about a week prior to presentation he noted a pimple or bug bite on his right forearm. He tried to drain it. Later on he started to notice swelling pain and erythema. Over the last 2 days he has had subjective fevers. In ED, CT showed abscess 6.4 cm by 2 cm x 2.7 cm. Low-grade temp of 100.3 degrees, leukocytosis of 14, not meeting sirs criteria. He was admitted to the medical-surgical unit and Orthopedic Surgery was consulted. He underwent operative incision and drainage on 02/29/24. Postoperatively, drain was removed on 03/01/24. There was marked improvement in erythema and swelling. He was treated with IV vancomycin. Wound cultures grew group C Streptococcus and antibiotic coverage was changed on ceftriaxone on 03/01/24. Blood cultures were negative. He was discharged with wound care instructions and Orthopedic Surgery follow-up. He was prescribed 10 days of PO cefuroxime axetil 500 mg bid. Time Attestation Discharge Coordination Time (in mins): 35 Quality: Safe Use of Opioids Does Pt have an Active Cancer Diagnosis on the Problem List?: No Quality: Stroke Does the patient have a stroke diagnosis?: No Physical Exam Vital Signs: Vital Signs: Last Vital Signs Temp 97.4 F 03/03/24 07:53 Pulse 60 03/03/24 07:53 Resp 12 03/03/24 07:53 BP 106/50 L 03/03/24 07:53 Pulse Ox 98 03/03/24 07:53 O2 Del Method Room Air 03/03/24 07:53 BMI result Body Mass Index 30.6 Gen: in no acute distress HEENT: sclera anicteric, moist mucus membranes Neck: supple Lungs: clear to auscultation bilaterally Heart: regular rate and rhythm, no murmurs Abd: soft, non-tender, non-distended Ext: no edema Skin: warm/well-perfused, some residual erythema and induration around the I+D site on the R forearm; distally he is neurovascularly intact Neuro: alert and oriented x3, no focal findings Psych: appropriate affect DS: Data Data Completed and Pending Completed studies during hospitalization [Text1]: Laboratory Results WBC 7.8 X10*3/uL (4.8-10.8) 02/29/24 06:10 RBC 4.21 X10*6/uL (4.60-5.80) L 02/29/24 06:10 Hgb 13.4 g/dl (14.0-18.0) L 02/29/24 06:10 Hct 37.5 % (42.0-52.0) L 02/29/24 06:10 MCV 89.1 fL (80.0-98.0) 02/29/24 06:10 MCH 31.8 pg (27.0-33.0) 02/29/24 06:10 MCHC 35.7 g/dl (31.0-36.0) 02/29/24 06:10 RDW 11.9 % (11.0-16.0) 02/29/24 06:10 Plt Count 204 X10*3/uL (160-400) 02/29/24 06:10 MPV 9.6 fL (9.4-12.4) 02/29/24 06:10 Immature Gran % (Auto) 0.4 % (0.0-0.4) 02/28/24 10:25 Neut % (Auto) 78.4 % (45-73) H 02/28/24 10:25 Lymph % (Auto) 10.1 % (20-40) L 02/28/24 10:25 [place] % (Auto) 10.6 % (2-11) 02/28/24 10:25 Eos % (Auto) 0.3 % (0-4) 02/28/24 10:25 Baso % (Auto) 0.2 % (0-2) 02/28/24 10:25 Lymph # (Auto) 1.4 X10*3/uL (1.2-4.9) 02/28/24 10:25 [place] # (Auto) 1.5 X10*3/uL (0.1-1.2) H 02/28/24 10:25 Eos # (Auto) 0.0 X10*3/uL (0.0-0.4) 02/28/24 10:25 Baso # (Auto) 0.0 X10*3/uL (0.0-0.2) 02/28/24 10:25 Abs Immat Gran (auto) 0.05 X10*3/uL (0.00-0.03) H 02/28/24 10:25 Absolute Neuts (auto) 11.2 x10*3/uL (2.0-8.3) H 02/28/24 10:25 Absolute Nucleated RBC 0.000 X10*3/uL (0.0-0.012) 02/29/24 06:10 Nucleated RBC % (auto) 0.0 /100WBC (0.0-0.2) 02/29/24 06:10 ESR 36 MM/HR (0-15) H 02/28/24 13:37 Hold Purple Top SEE NOTE 03/01/24 05:36 Sodium 139 mmol/L (135-145) 02/29/24 06:10 Potassium 4.0 mmol/L (3.3-5.1) 02/29/24 06:10 Chloride 108 mmol/L (96-108) 02/29/24 06:10 Carbon Dioxide 25 mmol/L (22-29) 02/29/24 06:10 Anion Gap 10 (12-20) L 02/29/24 06:10 BUN 13 mg/dL (9-16) 02/29/24 06:10 Creatinine 0.79 mg/dL (0.5-1.4) 03/01/24 05:36 Estim Creat Clear Calc 158.4 03/01/24 05:36 Estimated GFR > 60 03/01/24 05:36 Random Glucose 77 mg/dL (60-115) 02/28/24 10:25 Fasting Glucose 95 mg/dL (60-99) 02/29/24 06:10 Lactic Acid 1.5 mmol/L (0.5-2.0) 02/28/24 13:40 Calcium 9.1 mg/dL (8.4-10.2) 02/29/24 06:10 Total Bilirubin 0.9 mg/dL (0.0-1.0) 02/28/24 10:25 AST 14 U/L (5-37) 02/28/24 10:25 ALT 26 U/L (0-40) 02/28/24 10:25 Alkaline Phosphatase 57 U/L (39-117) 02/28/24 10:25 C-Reactive Protein 13.21 mg/dL (< or = 0.50) H 02/28/24 13:37 Total Protein 7.4 g/dL (6.5-8.0) 02/28/24 10:25 Albumin 4.3 g/dL (3.5-5.0) 02/28/24 10:25 Random Vancomycin 4.3 mcg/mL (15-20) L 02/29/24 17:11 Blood Type A Positive 02/29/24 17:11 Antibody Screen NEGATIVE 02/29/24 17:[address] 02/28/24 15:18 IMPRESSION: In the volar aspect aspect of the elbow, is a peripherally enhancing organized fluid collection in the soft tissue/subcutaneous tissues. This measures 6.4 x 2 x 2.7 cm. Findings are suspicious for abscess. There is extensive soft tissue swelling and subcutaneous edema/cellulitis in the visualized/imaged portions of the humerus and forearm. There is some edema/fluid also extending along the biceps tendon.. No additional organized fluid collections are identified. No significant ankle joint effusion is seen. Electronically signed by: Immanuel Dodd MD 02/28/2024 06:37 PM EDT Discharge Plan Discharge Anticipated Discharge Date/Time: 03/03/24 13:44 Patient Disposition: Home, Self-Care Discharge Diagnosis: abscess/cellulitis of R forearm Referrals: Maulik Carmona PA [Physician Computing Machine Operator] - 1 Week (03/06/24 13:15 [facility] Maulik Carmona PA) Physician,None [Primary Care Provider] - 1 Week Discharge Medications: New cefuroxime axetil 500 mg tablet 500 mg PO BID Qty: 20 0RF Discharge Orders: Discharge Order (Routine); Ordered 03/03/24 Ordered By: Jaehyun Sanjiv Diet: Advance to usual diet Activity on Discharge: As tolerated Stand Alone Forms: Patient Portal Discharge page Print Language: Tuvaluan Activity Restrictions/Additional Instructions: Dressing change instructions: Change dressings daily. Layer with gauze pads, kerlix, and Robel bandage Keep dressing and incision site clean, dry, intact Maintain close outpatient follow up with orthopedics Care Plan Goals: cure of infection Health Concerns: abscess/cellulitis of R forearm Plan of Treatment: cefuroxime 500 mg twice daily for 10 days wound care as above follow up with [facility] on 03/06/24 at 13:15 establish primary care as soon as possible Assessment: See Discharge Summary.
--- NOTE | 2024-03-05 21:27 | P.CNID_ITS ---
History of Present Illness Data of Consult Service Date: 03/02/24 Requesting physician: Moni Martínez Primary Care Provider: None Physician HPI Reason for consult: Group C strep bacteremia He presents with right arm swelling and pain for three days. He takes po Keflex 500 mg qid for 10 days and no improvement. He denies any drug use. Review of Systems 2 Review of Systems: Yes all other systems are reviewed and are negative [facility] Family History Family history: reviewed and not pertinent Social History Social History Household Members: Family Housing: House Do you presently have visiting nurse or other home services: No Patient Tobacco Use Status: Current everyday Tobacco user Tobacco use type: Cigarette Cigarettes Per Day: 1 Substance Use Type: Crack/Cocaine service: No Meds Allergies Allergy/AdvReac Type Severity Reaction Status Date / Time No Known Allergies Allergy Verified 02/28/24 14:16 Physical Exam 2 Vital Signs: Vital Signs: Last Vital Signs Temp 97.4 F 03/03/24 07:53 Pulse 60 03/03/24 07:53 Resp 12 03/03/24 07:53 BP 106/50 L 03/03/24 07:53 Pulse Ox 98 03/03/24 07:53 O2 Del Method Room Air 03/03/24 07:53 BMI result Body Mass Index 30.6 Extrem: Other: right arm swollen, reddened Results Labs 02/29/24 06:10 03/01/24 05:36 Microbiology Microbiology Results: Microbiology 02/28/24 13:36 Blood - Venous Blood Culture - Final No growth after 5 days. 02/28/24 13:36 Blood - Venous Blood Culture - Final No growth after 5 days. 03/01/24 19:14 Blood - Venous Blood Culture - Preliminary No growth after 48 hours. 03/01/24 19:13 Blood - Venous Blood Culture - Preliminary No growth after 48 hours. 02/28/24 18:23 Forearm Right Gram Stain - Final 02/28/24 18:23 Forearm Right Routine Culture - Final Streptococcus group c 02/29/24 Unknown Arm Right Gram Stain - Final 02/29/24 Unknown Arm Right Routine Culture - Final Streptococcus group c Assessment and Plan (1) Bacteremia: Status: Acute (2) Cellulitis of right forearm: Status: Acute Plan IV Ceftriaxone 2g daily and then when improved po cephalosporin total 14 days.
== END 2024-03-03 14:11 | disposition home or self-care (01) | DRG 364 ==
LOC: HO.ED 18:46 → HO.EDOVER 19:15 → HO.S3 19:22
PROVIDERS: Orthopaedic Surgery; Physician Assistant Medical; Admitting Provider Internal Medicine; Emergency Provider Emergency Medicine Emergency Medical Services; Visit Provider Family Medicine
PROC: 0J9D0ZZ Drainage of Right Upper Arm Subcutaneous Tissue and Fascia, Open Approach (ICD-10-PCS; principal; 2024-02-29 08:00)
DX: L02.413 Cutaneous abscess of right upper limb (principal); B95.4 Other streptococcus as the cause of diseases classified elsewhere; F17.210 Nicotine dependence, cigarettes, uncomplicated; L03.113 Cellulitis of right upper limb; Z71.6 Tobacco abuse counseling
CPT/HCPCS: 36415; 73201; 80048; 80053; 80202; 82565; 83605; 85025; 85027; 85652; 86140; 86850; 86900; 86901; 87040; 87070; 87147; 87205; 90715; 99285; J0131; J0696; J1100; J2250; J2270; J2405; J2704; J3010; J3370; J3371; Q9967

== ENCOUNTER → 2024-02-28 19:11 | Outpatient (BNV) | payer MEDICAID, SELFPAY | PROVIDERS: Admitting Provider Internal Medicine; Emergency Provider Emergency Medicine Emergency Medical Services; Visit Provider Orthopaedic Surgery | DX: L02.413 Cutaneous abscess of right upper limb (principal); L03.113 Cellulitis of right upper limb | CPT/HCPCS: 10060; 99024 ==

== ENCOUNTER → 2024-02-28 19:11 | Outpatient (BNV) | payer MEDICAID, SELFPAY | PROVIDERS: Admitting Provider Internal Medicine; Emergency Provider Emergency Medicine Emergency Medical Services; Visit Provider Internal Medicine | DX: L03.113 Cellulitis of right upper limb (principal); L02.413 Cutaneous abscess of right upper limb | CPT/HCPCS: 99222; 99232; 99239 ==

== ENCOUNTER → 2024-02-28 19:11 | Outpatient (BNV) | payer OTHER, SELFPAY | PROVIDERS: Admitting Provider Internal Medicine; Emergency Provider Emergency Medicine Emergency Medical Services; Visit Provider Internal Medicine | DX: R78.81 Bacteremia (principal); L03.113 Cellulitis of right upper limb | CPT/HCPCS: 99222 ==